=== PATIENT | male | born 1940 ===

== ENCOUNTER 2017-11-07 06:22 | Day surgery (SDC) | payer MEDICARE ==
[2017-11-07 06:41] VITALS: BMI 27.9
[2017-11-07] MEDS ORDERED: Lactated Ringer's 1,000 ML IV ONE ×2 (07:15→09:05)
[2017-11-07] MEDS ORDERED: cefTRIAXone IV 1 gm in Dextros 50 ML IVPB ONE (07:27)
[2017-11-07] MEDS ORDERED: cefTRIAXone (Rocephin) 1 gm Inj IVPB ONE (08:05)
[2017-11-07] MEDS ORDERED: Midazolam 2 MG/2 ML VIAL ONE (08:06)
[2017-11-07] MEDS ORDERED: Propofol 10 mg/ml Inj (20 ML) ONE (08:06)
[2017-11-07] MEDS ORDERED: SODIUM CHLORIDE 3,000 ML IR ONE ×2 (09:15)
[2017-11-07] MEDS: HYDROmorphone 0.5 mg/0.5 ml ISec IVP PRN ×2 (09:30→09:45)
[2017-11-07] MEDS ORDERED: Lactated Ringer's 1,000 ML IV SCH (09:30)
[2017-11-07 11:43] VITALS: O2SAT 98
[2017-11-07 11:44] VITALS: RESP 18; TEMP 97.6
[2017-11-07 13:15] VITALS: BP 148/76; PULSE 62
--- NOTE | 2017-11-07 14:50 | OP ---
PROCEDURE DATE: 11/07/2017 PREOPERATIVE DIAGNOSES: Prostate hypertrophy, symptomatic prostatism. POSTOPERATIVE DIAGNOSES: Prostate hypertrophy, symptomatic prostatism. PROCEDURE PERFORMED: GreenLight laser of the prostate. DESCRIPTION OF PROCEDURE: The patient was placed on the operating table in dorsal lithotomy position, given general anesthesia. The area of the groin was draped and prepped in the sterile manner at this time. Using under direct vision, a laser scope, I entered into the bladder atraumatically, identified the limits of the resection. Using the laser itself, I burned into the distal tissue, the distal portion of the resection. He had a rather large middle lobe. This was addressed first, then the right and left lateral lobes were taken down in size. Blood loss, I am going to estimate to be about 50 mL. At the end of the procedure, the verumontanum was circumferentially intact and to the bladder was completely open. Ureteral orifices were seen and identified. At this time, then the laser scope was removed and a #22 three-way Chang catheter was inserted. The initial outflow was visually clear. The patient was taken from the operating room in good condition. Nadine Medellin MD
== END 2017-11-07 13:15 | disposition home or self-care (01) ==
LOC: H.OPSURG 06:22
PROVIDERS: ATTEND Urology
DX: C61 Malignant neoplasm of prostate (principal)
CPT/HCPCS: 52648; J0696; J1170; J2001; J2250; J2704; J3010; J7030; J7120